=== PATIENT | male | born 1940 | race Caucasian/White ===

== ENCOUNTER 2017-10-29 21:53 | Inpatient (IN) | payer MEDICARE ==
[~2017-10-29] VITALS: Ht 190.5 cm; Wt 69.4 kg
[~2017-10-29 21:53] MED LIST: ALPRAZOLAM; ANALGESIC325 MG PO; ASPIRIN EC81 M1 PO; ASPIRIN325 PO; IBUPROFEN; IBUPROFEN 200200 M1 PO; MULTI VITAMIN1 EACH PO; MULTIVITAMINS1 EAC7 PO; NITROSTAT0.4 M1 SL; NORVASC; PLAVIX 75 MG TA75 M1 PO; PLAVIX 75 MG TA75 MG PO; PRAVACHOL 20 MG20 M1 PO; PRAVACHOL20 MG PO; PREDNISONE 1 MG1 M1 PO; PREDNISONE 2.52.5 M1 PO; PREDNISONE 5 MG5 MG PO; PROAIR HFA8.5 GM INH; SYMBICORT160 MCG/4. INH; TOPROL XL25 MG PO; VIT D PO; VITAMIN D32000 UNIT PO; XANAX 0.5 MG0.5 MG PO
[2017-10-29 22:03] VITALS: BP 88/54
[2017-10-29 22:31] LABS: ABSOLUTE BASOPHILS 0.1 thou/uL (0.0-0.2); ABSOLUTE EOSINOPHILS 0.1 thou/uL (0.0-0.7); ABSOLUTE LYMPHOCYTES 2.6 thou/uL (0.8-5.3); ABSOLUTE MONOCYTES 1.1 thou/uL (0.0-1.2); ABSOLUTE NEUTROPHILS 6.5 thou/uL (1.6-8.1); BASOPHILS 0.6 %; EOSINOPHILS 0.9 %; HEMATOCRIT 32.6 % (42.0-52.0); HEMOGLOBIN 10.9 gm/dL (14.0-18.0); LYMPHOCYTES 25.1 %; MCHC 33.5 g/dL (28.0-37.0); MCV 89.7 fL (80.0-100.0); MONOCYTES 10.6 %; MPV 9.9 fl. (7.2-11.1); NUCLEATED RBCS 0 /100WBC; PLATELET COUNT* 183 thou/uL (150-400); POLYS 62.8 %; RBC 3.63 mil/uL (4.50-6.00); WBC 10.4 thou/uL (4.0-11.0)
[2017-10-29 22:39] LABS: CALCIUM 8.1 mg/dL (8.5-10.1); CREATININE 1.1 mg/dL (0.6-1.3); POTASSIUM 3.8 mmol/L (3.5-5.1)
[2017-10-29 22:40] LABS: PROTIME 10.7 Seconds (9.20-11.50)
[2017-10-29 22:49] LABS: ALBUMIN 2.7 g/dL (3.4-5.0); TOTAL BILIRUBIN 0.3 mg/dL (<0.1-1.0); TOTAL PROTEIN 6.9 g/dL (6.4-8.2); TROPONIN-I LEVEL 0.11 ng/mL (<0.06)
[2017-10-30] VITALS (19 sets, daily range): BP systolic 85–120; BP diastolic 42–76
--- NOTE | 2017-10-30 01:00 | NUR ---
PATIENT ARRIVED TO UNIT @ 0040. VS WNL. TACHY ON MONITOR WITH OCCASIONAL PVS, PACS. PROTONIX GTT AND NS INFUSING. PT HAD BM ON HIS WAY TO ICU, MAROON IN COLOR, FOUL-SMELLING LIQUID STOOL. PT STATES HE IS FEELING BETTER THEN WHEN HE CAME IN. ALERT ORIENT X4. PT COMPLAINS OF ABD AND BACK PAIN. HE IS NAUSEOUS GAVE HIM ZOLFRAN WILL CONTINUE TO MONITOR. AND SISTER IN ROOM, UPDATED ON CURRENT CARE OF PLAN. WILL CONSULT GI, CONTINUE TO MONITOR LABS.
--- NOTE | 2017-10-30 02:30 | NUR ---
PT NAUSEA HAS NOT SUBSIDED PT HAD MODERATE SIZE EMESIS ABOUT 150ML. CONTENTS OF THE EMESIS WERE GELATINOUS LIKE CONSISTANCY, MAROON IN COLOR. PAGED HIM'S TO GET PHENERGAN IV. ALSO PAGED GI, WAITING CASTING DIRECTOR BACK. WAS NOTIFIED FROM LAB THAT PT HAS SHEARER ANTIGEN IN HIS BLOOD WILL PASS ON REPORT.
[2017-10-30 03:28] LABS: HEMATOCRIT 27.1 % (42.0-52.0)
--- NOTE | 2017-10-30 06:39 | NUR ---
PATIENT PROGRESSING TOWARDS GOALS. HAS NOT HAD AN EPISODE OF EMESIS SINCE O200. PT HEMODYNAMICALLY TABLE. TACHY ON MONITOR WITH OCCASIONAL PV'S. ORIENT X4. PT STATES HE FEELS WEAK AND TIRED. DID NOT SLEEP LAST NIGHT. PT HAS SCOPOLAMINE PATCH IN PLACE AND RECIEVED REGLAN IV. HAS BEEN NPO SINCE ADMISSION. SPOKE WITH GI DOCTOR PT WILL GET AN EGD THIS A.M BY DR. BURK. CONCENT SIGNED IN CHART. PT HAS NOT HAD BM SINCE THIS MORNING WHEN ADM TO ICU. CONTINUES PROTONIX GTT. LABS WNL RANGE HEMOGLOBIN WITHIN TRENDING DOWN. WILL CONTINUE TO MONITOR PT CLOSELY.
[2017-10-30 08:00] LABS: HEMATOCRIT 24.9 % (42.0-52.0); HEMOGLOBIN 8.3 gm/dL (14.0-18.0)
[2017-10-30 08:11] LABS: ALBUMIN 2.5 g/dL (3.4-5.0); CALCIUM 7.7 mg/dL (8.5-10.1); POTASSIUM 4.1 mmol/L (3.5-5.1); TOTAL BILIRUBIN 0.4 mg/dL (<0.1-1.0); TOTAL PROTEIN 6.2 g/dL (6.4-8.2)
[2017-10-30 10:10] LABS: HEMATOCRIT 25.2 % (42.0-52.0); HEMOGLOBIN 8.4 gm/dL (14.0-18.0)
--- NOTE | 2017-10-30 11:05 | NUR ---
Pt admitted with GI bleed yesterday, just returned from EGD. Spoke briefly with pt but he said he didn't feel like talking. Explained role of case mgt, will assess at later time.
--- NOTE | 2017-10-30 11:31 | NUR ---
Nutrition: Pt assessed for a low BMI, 16. Per [employer], height is 6'3" and wt is 128#. Pt admitted with GI bleed. H/o hiatal hernia, COPD, HTN. EGD showed esophageal ulcer. NSAIDS being held, repeating EGD in 2 weeks for possible biopsy. Diet advanced to clear liquid now. Labs: BG 117, alb 2.5, prealb 20.5, lactic acid trending back down 3.2. Underweight R/T etiology unknown AEB BMI 16. Continue advancing diet as tolerated. RD will order Ensure Clear for added nutrition at this time. Pt is not tolerating po very well yet. Follow up 10/31/17.
--- NOTE | 2017-10-30 15:44 | EKG ---
[place] [address] ELECTROCARDIOGRAM REPORT Name: [facility]LA [facility]SE Room: [address] ADM IN .R.#: [id number] Admission: 10/29/17 Attend Phys: Jayy Pina MD Discharge: Date of : 42 Report #: [id number] THIS REPORT FOR: //name// [facility] ED Test Date: 2017-10-29 Test Time: 22:35:32 Pat Name: CHELA HOUSE Department: Room: [facility] Gender: M Entertainment Production Professional: : 1940 Requested By: Bird Cruz Order Number: [id number] MD: Charles Du Measurements Intervals [place] Rate: 92 P: 51 AR: 148 QRS: 15 QRSD: 92 T: 176 QT: 348 QTc: 431 Interpretive Statements Sinus rhythm Atrial premature complexes Probable left atrial enlargement Possible anteroseptal infarct, old Nonspecific T abnormalities, lateral leads Compared to ECG 06/11/2007 16:17:02 Atrial premature complex(es) now present T-wave abnormality now present Prolonged QT interval no longer present Electronically Signed On 10-30-2017 15:44:15 CDT by Charles Du [email or web address] <ELECTRONICALLY SIGNED> By: Charles Du MD, FACC 10/30/17 1544 [id number] Charles Du MD, FACC /EPI
[2017-10-30 18:05] LABS: HEMATOCRIT 20.3 % (42.0-52.0)
--- NOTE | 2017-10-30 18:37 | NUR ---
PT ASSESSMENT CHARTED. VSS THROUGHOUT THE DAY. PT SAT UP AT THE SIDE OF THE BED SEVERAL TIMES TODAY RELATED TO BACK PAIN. PT REPORTS THAT HE DOES NOT HAVE MUCH OF AN APPETITE. CLEAR LIQUIDS TOLERATED WITH NO COMPLAINTS OF N/V. EGD DONE THIS MORNING.
--- NOTE | 2017-10-30 22:01 | NUR ---
PATIENT IS PROGRESSING TOWARDS GOALS. CURRENTLY RECEIVING BLOOD TRANSFUSION. TOLERATING WELL. VS WNL. LOW GRADE FEVER. HAS HAD IT SINCE BEGINING OF SHIFT, TRENDING DOWN. PT WILL BE GOING TO ROOM 219. GAVE REPORT TO RN. IN ROOM. PT COMPLAINING OF BACK PAIN BUT DENIES MEDICATION. PT HAS BEEN ANXIOUS SINCE ADMISSION HE STATES HE TAKES XANAX AT HOME. PT ON CLEAR LIQUIDS DR. WILLSONVED FOR IV ATIVAN BUT PT REFUSING.
[2017-10-31] VITALS (8 sets, daily range): BP systolic 80–114; BP diastolic 43–60
[2017-10-31 01:33] LABS: HEMATOCRIT 23.1 % (42.0-52.0); HEMOGLOBIN 7.9 gm/dL (14.0-18.0)
--- NOTE | 2017-10-31 03:24 | NUR ---
AGREE WITH PREVIOUS NURSE ASSESSMENT. PT ALERT ORIENTED FORGETFUL. TRANSFER FROM ICU TO 219 WITH BLOOD TRANSFUSING. POST H&H TRANSFUSION 7.9/23.[address] ON RA. RR TACHYPNEC 24-29. O2 SATS UPPPER 90S. PROTONIX QTT INFUSING AT 8MG/HR. VOIDS PER URINAL.
[2017-10-31 05:46] LABS: HEMOGLOBIN 8.1 gm/dL (14.0-18.0); MCH 29.9 pg (26.0-34.0); MCHC 33.7 g/dL (28.0-37.0); MCV 88.8 fL (80.0-100.0); MPV 9.4 fl. (7.2-11.1); RBC 2.71 mil/uL (4.50-6.00); RDW-CV 15.1 % (10.5-14.5); WBC 5.4 thou/uL (4.0-11.0)
[2017-10-31 05:49] LABS: CALCIUM 7.8 mg/dL (8.5-10.1); MAGNESIUM 1.7 mg/dL (1.8-2.4); POTASSIUM 3.8 mmol/L (3.5-5.1)
[2017-10-31 11:41] LABS: HEMATOCRIT 24.2 % (42.0-52.0); HEMOGLOBIN 8.3 gm/dL (14.0-18.0)
--- NOTE | 2017-10-31 13:14 | NUR ---
VSS, ASSUMED CARE IN THIS AM, ASSESSMENT PERFOMRED AND CHARTED, FALL PRECAUTIONS IN PLACE AND CALL LIGHT IN REACH. PT IS A&O4 BUT FORGETFUL, PT DENIES ANY PAIN, IS UP WITH 1 TO BSC.
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
[2017-10-31 20:35] LABS: BE -4.7 mmol/L (-2 to +3); HCO3 16.2 mmol/L (22.0-26.0); PCO2 21.9 mmHg (35.0-45.0); pH 7.488 (7.340-7.450)
[2017-11-01] VITALS (29 sets, daily range): BP systolic 72–113; BP diastolic 41–71
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
--- NOTE | 2017-11-01 01:36 | NUR ---
PT TRANSFERED TO ICU ROOM 5 AT 0115 FOR RESPIRATORY DISTRESS. PT PLACED ON BIPAP PER RT. PT ANXIOUS AND IMPULSIVE, SITTER AT BEDSIDE. RECIEVED ORDER FROM DR MORALES TO PLACE GUAJARDO CATHETER. 16 POLISH GUAJARDO PLACED WITH CLEAR YELLOW URINE.
--- NOTE | 2017-11-01 03:14 | NUR ---
PT'S RESPIRATIONS 45-50. PT'S HEART RATE DECREASED FROM 140'S TO 115. PT VERY TIRED. RT PAGED, ED PHYSICAN HERE ASSESING NEED FOR INTUBATION. DR MORALES AND PT'S DAUGHTER PAGED.
--- NOTE | 2017-11-01 04:26 | NUR ---
PT INTUBATED AT [address] NEVILLE. PT INTUBATED WITH 7.5 ET TUBE 23 CM AT LIP. PT GIVEN ETOMADATE AND SUCCYTLCHOLINE PRIOR TO INTUBATION. PT GIVEN 5 MG VERSED AND 50 MCG FENTANYL IV PUSH VERBAL ORDER DR LOO POST INTUBATION. NG PLACED VIA LEFT NARE TO LIS WHILE INTUBATED AND SEDATED ON VENTILATOR. SOFT BILATERAL WRIST RESTRAINTS IN PLACE TO MAINTAIN ET TUBE, NG AND GUAJARDO CATHETER. LEFT MESSAGE TO VOICE MAIL FOR PT'S DAUGHTER FREDERICK CAMPOS. AWAITING RETURN CALL.
--- NOTE | 2017-11-01 04:33 | NUR ---
STAT PORTABLE CHEST XRAY DONE TO CONFIRM ET TUBE AND NG TUBE PER ICU PROTOCOL.
[2017-11-01 04:58] LABS: MCH 30.4 pg (26.0-34.0); MCHC 32.5 g/dL (28.0-37.0); MCV 93.3 fL (80.0-100.0); MPV 10.4 fl. (7.2-11.1); RBC 3.53 mil/uL (4.50-6.00); RDW-CV 16.3 % (10.5-14.5); WBC 17.1 thou/uL (4.0-11.0)
[2017-11-01 05:33] LABS: BE -5.5 mmol/L (-2 to +3); HCO3 16.5 mmol/L (22.0-26.0); PCO2 22.5 mmHg (35.0-45.0); pH 7.483 (7.340-7.450)
[2017-11-01 05:36] LABS: PO2 165.8 mmHg (75.0-100.0)
[2017-11-01 05:39] LABS: CALCIUM 8.4 mg/dL (8.5-10.1); CREATININE 1.7 mg/dL (0.6-1.3); MAGNESIUM 2.4 mg/dL (1.8-2.4); POTASSIUM 4.4 mmol/L (3.5-5.1)
[2017-11-01 05:42] LABS: HEMOGLOBIN 10.7 gm/dL (14.0-18.0)
--- NOTE | 2017-11-01 06:45 | NUR ---
PT NOT PROGRESSING TOWARD GOALS. PT INTUBATED DURING SHIFT. PT RECCIEVING IV VERSED AND FENTANYL FOR SEDATION.
[2017-11-01 13:24] LABS: HEMATOCRIT 27.4 % (42.0-52.0); HEMOGLOBIN 9.2 gm/dL (14.0-18.0); MCH 29.8 pg (26.0-34.0); MCHC 33.6 g/dL (28.0-37.0); MCV 88.8 fL (80.0-100.0); NUCLEATED RBCS 0 /100WBC; PLATELET COUNT* 128 thou/uL (150-400); RBC 3.09 mil/uL (4.50-6.00); RDW-CV 15.4 % (10.5-14.5); WBC 7.9 thou/uL (4.0-11.0)
[2017-11-01 13:33] LABS: ALBUMIN 2.4 g/dL (3.4-5.0); CALCIUM 7.9 mg/dL (8.5-10.1); POTASSIUM 4.2 mmol/L (3.5-5.1); TOTAL BILIRUBIN 0.6 mg/dL (<0.1-1.0); TOTAL PROTEIN 6.6 g/dL (6.4-8.2)
[2017-11-01 13:50] LABS: ABSOLUTE LYMPHOCYTES 0.5 thou/uL (0.8-5.3); ABSOLUTE MONOCYTES 0.2 thou/uL (0.0-1.2); ABSOLUTE NEUTROPHILS 7.3 thou/uL (1.6-8.1); PLATELET ESTIMATE DECREASED
[2017-11-01 13:51] LABS: POLYCHROMASIA Occasional
--- NOTE | 2017-11-01 21:17 | NUR ---
INITAL ASSESMENT COMPLETED AT 1930. PT INTUBATED AND SEDATED ON VENTILATOR. PT OPENS EYES TO VOICE AND FOLLOWS COMMANDS. PT'S MAP < 60. CALLED DR FONSECA AND RECIEVED ORDER TO INFUSE 750 ML NORMAL SALINE X1 AND CHECK CBC.
[2017-11-01 21:33] LABS: HEMATOCRIT 26.8 % (42.0-52.0); HEMOGLOBIN 9.1 gm/dL (14.0-18.0); MCH 30.1 pg (26.0-34.0); MCHC 33.9 g/dL (28.0-37.0); MCV 88.7 fL (80.0-100.0); MPV 9.4 fl. (7.2-11.1); RBC 3.02 mil/uL (4.50-6.00); RDW-CV 15.5 % (10.5-14.5); WBC 8.6 thou/uL (4.0-11.0)
--- NOTE | 2017-11-01 22:29 | NUR ---
PT'S DAUGHTER HUAN ARRIVED. DAUGHTER STATES SHE IS DPOA FOR PT. DAUGHTER STATES HER DPOA PAPERWORK IS ON FILE AT [facility]. DAUGHTER STATES PT'S EX AND FAMILY ARE NOT TO HAVE INFORMATION. SECURITY AND BUILDING PRINCIPAL MADE AWARE THAT PT IS NO INFORMATION STATUS.
[2017-11-02] VITALS (21 sets, daily range): BP systolic 85–100; BP diastolic 51–65
[2017-11-02 04:30] LABS: ABSOLUTE LYMPHOCYTES 0.4 thou/uL (0.8-5.3); ABSOLUTE MONOCYTES 0.3 thou/uL (0.0-1.2); ABSOLUTE NEUTROPHILS 7.8 thou/uL (1.6-8.1); BASOPHILS 0.2 %; HEMATOCRIT 26.5 % (42.0-52.0); HEMOGLOBIN 8.9 gm/dL (14.0-18.0); LYMPHOCYTES 4.1 %; MCH 30.2 pg (26.0-34.0); MCHC 33.5 g/dL (28.0-37.0); MCV 90.1 fL (80.0-100.0); MONOCYTES 3.9 %; MPV 10.8 fl. (7.2-11.1); NUCLEATED RBCS 0 /100WBC; PLATELET COUNT* 115 thou/uL (150-400); POLYS 91.8 %; RBC 2.94 mil/uL (4.50-6.00); RDW-CV 15.3 % (10.5-14.5); WBC 8.5 thou/uL (4.0-11.0)
[2017-11-02 04:42] LABS: ALBUMIN 2.3 g/dL (3.4-5.0); CALCIUM 7.6 mg/dL (8.5-10.1); CREATININE 1.7 mg/dL (0.6-1.3); POTASSIUM 3.9 mmol/L (3.5-5.1); TOTAL BILIRUBIN 0.5 mg/dL (<0.1-1.0); TOTAL PROTEIN 6.4 g/dL (6.4-8.2)
[2017-11-02 07:51] LABS: BE -3.1 mmol/L (-2 to +3); HCO3 19.5 mmol/L (22.0-26.0); PCO2 26.3 mmHg (35.0-45.0); PO2 112.2 mmHg (75.0-100.0); pH 7.487 (7.340-7.450)
--- NOTE | 2017-11-02 09:00 | NUR ---
RN RESUMED CARE OF PT THIS AM. PT VENTILATED AND SEDATION ON PROPOFOL. AROUSABLE TO LIGHT TOUCH/VOICE, NODES HEAD YES AND NO APPROPRIATELY. OBEYS COMMANDS. PT TRYING TO TALK. VSS. AFEBRILE. PT DENIES PAIN. DAUGHTER CALLED THIS AM AND STATES THAT SHE AND HER SISTER WILL BE IN SHORTLY. STATES PTS AD PAPERWORK IS ON FILE AT [facility], REQUEST FOR PAPERWORK FAXED THIS AM.
--- NOTE | 2017-11-02 10:23 | CON ---
[address] [address] CONSULTATION Name: CHELA [facility]SE Room: [address] IN .R.#: [id number] Admission: 10/29/17 Attend Phys: Jayy Pina MD Discharge: Date of : 42 Report #: [id number] THIS REPORT FOR: //name// CC: Jayy Pina Surehs Box DATE OF SERVICE: 11/01/2017 REFERRING PHYSICIAN: Jayy Pina MD CHIEF COMPLAINT: Respiratory failure. HISTORY OF PRESENT ILLNESS: The patient presented to the Emergency Room because he had been vomiting blood. He also had clots in his stool. He has rheumatoid arthritis, had been on steroids, nonsteroidal anti-inflammatory drugs and Plavix as well. According to the records, he did complain of abdominal pain. During the course of the verifier operator apparently the patient was intubated for respiratory distress. He had tachypnea with a respiratory rate in the 40s and 50s. Notes reviewed revealed that the exiting nurse this morning shows that the patient had respiratory distress. Saturations were in the 80% range. He was placed on a nonrebreather mask. The patient was found to be hypoxic, apparently was transferred to the intensive care unit and somewhere in this time frame required intubation for he did not respond favorably to BiPAP. During the course of this hospitalization, the patient underwent GI evaluation for his GI bleed. An upper endoscopy procedure was performed on 10/30 revealed an esophageal ulcer that was bleeding. This was injected with 5 mL of 1:10,000 solution of epinephrine for hemostasis. PAST MEDICAL HISTORY: Significant for anxiety, COPD and coronary artery disease. He has had stents placed, hiatal hernia, hypertension, cardiomyopathy, arthritis and chronic congestive heart failure. SOCIAL HISTORY: He is a smoker, 1-2 packs per day. MEDICATIONS: Prior to admission include Plavix, Xanax, Advil, prednisone and metoprolol. ALLERGIES: PENICILLIN AND LACTULOSE. REVIEW OF SYSTEMS: System review negative other than what is outlined above. FAMILY HISTORY: Noncontributory [place] [address] CONSULTATION Name: CHELA HOUSE Room: [address]#: [id number] Admission: 10/29/17 Attend Phys: Jayy Pina MD Discharge: Date of : 42 Report #: [id number] PHYSICAL EXAMINATION: VITAL SIGNS: Blood pressure 97/61, respiratory rate 26, pulse rate 111, temperature 97.6 degrees and weight 128 pounds. GENERAL APPEARANCE: Intubated, sedated on propofol drip. Oral endotracheal tube. Orogastric tube as well. HEAD: Atraumatic. EYES: Pupils are round, equal and reactive. NECK: With minimal JVD. No mass effect. LYMPHATICS: Negative. CHEST: Reveals diminished breath sounds. No wheezes or rhonchi. He has a barrel chest. CARDIOVASCULAR: Regular rhythm. No murmurs or rubs. Distant heart tones. ABDOMEN: Soft. No organomegaly or tenderness or mass effect. EXTREMITIES: No evidence of edema or clubbing. SKIN: Warm and dry, no rash or cyanosis. LYMPHATICS: Negative. Pulses equal bilaterally. NEUROLOGIC: The patient is sedated. LABORATORY DATA: Most recent arterial blood gas at 5:30 a.m. revealed a pH 7.48, pCO2 of 23, pO2 166 and bicarbonate is 16. He is on 50% now as far as his FiO2 is concerned. Hemoglobin and hematocrit this morning revealed a white count of 17,000, hemoglobin was 10.7 and hematocrit 33. Electrolytes: Sodium 149, potassium 4.4, chloride 110, CO2 of 17, BUN of 56, creatinine 1.7 and EGFR 39. Chest x-ray reveals bilateral pulmonary infiltrates. ET tube is in adequate position. IMPRESSION: 1. Acute respiratory insufficiency/failure requiring intubation. 2. Gastrointestinal bleed. 3. Esophageal ulceration. 4. Tobacco abuse. 5. Rheumatoid arthritis. RECOMMENDATION: Obviously, anticoagulation needs to be discontinued. Pulmonary stone, continue with aerosol treatments and adjust ventilator accordingly. Followup x-ray, ABGs in the a.m. I do not see a need for trials in the next 24 hours, maybe on Friday of this week can initiate trials. Otherwise, no change in his medication. <ELECTRONICALLY SIGNED> By: Riley Kim MD 11/02/17 1023 1208 [id number] Kim MD /nt
--- NOTE | 2017-11-02 16:41 | NUR ---
PT SLOWLY PROGRESSING TOWARDS GOALS. REMAINS VENTILATED AND SEDATED ON PROPOFOL. AROUSABLE TO LIGHT TOUGH/VOICE, OBEYS COMMANDS, AND NODES HEAD YES AND NO APPROPRIATELY. PT C/O PAIN AT TIMES, CONTROLLED WITH PRN FENTANYL. BECOMES AGITATED WHEN STIMULATED BY FAMILY, REQUIRING MORE SEDATION. VSS. BP SLIGHTLY LOW. AFEBRILE. FAMILY DISCUSSED PT CONDITION WITH MD. DENIES FURTHER QUESTIONS/CONCERNS.
[2017-11-03] VITALS (29 sets, daily range): BP systolic 85–113; BP diastolic 54–72
[2017-11-03 04:00] LABS: ABSOLUTE LYMPHOCYTES 0.2 thou/uL (0.8-5.3); ABSOLUTE MONOCYTES 0.4 thou/uL (0.0-1.2); ABSOLUTE NEUTROPHILS 7.7 thou/uL (1.6-8.1); BASOPHILS 0.2 %; HEMATOCRIT 26.2 % (42.0-52.0); HEMOGLOBIN 8.6 gm/dL (14.0-18.0); LYMPHOCYTES 2.9 %; MCH 29.9 pg (26.0-34.0); MCHC 32.9 g/dL (28.0-37.0); MCV 90.8 fL (80.0-100.0); MONOCYTES 4.4 %; MPV 9.9 fl. (7.2-11.1); NUCLEATED RBCS 1 /100WBC; PLATELET COUNT* 114 thou/uL (150-400); POLYS 92.5 %; RBC 2.88 mil/uL (4.50-6.00); RDW-CV 15.5 % (10.5-14.5); WBC 8.4 thou/uL (4.0-11.0)
--- NOTE | 2017-11-03 06:14 | NUR ---
PT AAOX1. PT REMAINS ON VENTILATOR ETT 7.5 23@LIP INTACT. VENT SETTINGS AC14, TV 500, FIO2 35% AND PEEP 5. AUTOMATION CONTROLS SPECIALIST INTACT WITH ALARMS SET.GUAJARDO INTACT AND PATNET DRAINING YELLOW URINE OT BEDSIDE BAG. PT WILL FOLLOW SIMPLE COMMANDS, DENIES PAIN. PT HAD UNEVENTFUL NIGHT. VSS AND NO ACUTE CHANGES DURIGN SHIFT. DAUGHTER CALLED AND STATED SHE WAS HOPING WE WOULD GET THE ADVANCE DIRECTIVE PAPERWORK FROM [facility], SHE THINKS HE IS SUPPOSE TO BE A DNR. RESTRAITNS REMAIN INTACT, SEE RESTRAINT CHARTING. WILL CONTINUE TO MONITOR
--- NOTE | 2017-11-03 10:00 | NUR ---
PT AWAKE ON VENTILATOR. FENTANYL PUSH GIVEN WITH NO CHANGE IN SEDATION. PULMONARY NOTIFIED AND RECEIVED ORDERS TO DC PROPOFOL, START VERSED. IF VERSED NOT ENOUGH START FENTANYL.
[2017-11-03 10:43] LABS: BE -3.4 mmol/L (-2 to +3); PCO2 30.2 mmHg (35.0-45.0); PO2 82.4 mmHg (75.0-100.0); pH 7.439 (7.340-7.450)
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
--- NOTE | 2017-11-03 12:31 | NUR ---
PT EXTUBATED 1115. PT TALKATIVE. ASKING FOR WATER. DENIES PAIN. DTR AT BEDSIDE.
--- NOTE | 2017-11-03 15:11 | NUR ---
PT PASSED BEDSIDE SWALLOW ON THIN LIQUIDS AND TOLERATING.
--- NOTE | 2017-11-03 15:42 | NUR ---
PT HEART RATE WENT TO 130'S. PAGED ASKED FOR IV METOPROLOL PT STILL NPO AFTER EXTUBATION. NO ORDERS RECEIVED. PT HR CURRENTLY <110. WILL CONTINUE TO MONITOR.
--- NOTE | 2017-11-03 16:22 | NUR ---
WOUND CARD CONSULT CALLED FOR FEET. FEET CLEANED WITH SOAP AND WATER.
--- NOTE | 2017-11-03 17:58 | 2DMMODE ---
[place] [address] 2 D/M-MODE ECHOCARDIOGRAM Name: CHELA [facility]SE Room: [address] IN [facility]#: [id number] Admission: 10/29/17 Attend Phys: Jayy Pina, Discharge: Date of : 42 Date of Service: 11/03/17 1758 Report #: [id number] THIS REPORT FOR: //name// APPROVED REPORT Study performed: 11/03/2017 16:23:04 EXAM: Comprehensive 2D, Doppler, and color-flow Echocardiogram Patient Location: In-Patient Room #: [facility] Status: routine BSA: 1.77 HR: 107 bpm BP: 101/68 mmHg Rhythm: Atrial Fibrillation Other Information Study Quality: Good Indications Atrial Fibrillation Resp failure 2D Dimensions IVSd: 8.91 (7-11mm) LVOT Diam: 19.85 (18-24mm) LVDd: 50.21 mm PWd: 8.86 (7-11mm) Ascending Ao: 31.16 (22-36mm) LVDs: 42.31 (25-40mm) Aortic Root: 32.69 mm Volumes Left Atrial Volume (Systole) LA ESV Index: 47.20 mL/m2 Aortic Valve AoV Peak Vijay.: 1.15 m/s AO Peak Gr.: 5.28 mmHg LVOT Max P.93 mmHg AO Mean Gr.: 2.88 mmHg LVOT Mean P.36 mmHg LVOT Max V: 0.86 m/s AO V2 VTI: 17.51 cm LVOT Mean V: 0.54 m/s EVETTE (VTI): 2.24 cm2 LVOT V1 VTI: 12.67 cm Mitral Valve E/A Ratio: 1.15 MV Decel. Time: 119.69 [place] [address] 2 D/M-MODE ECHOCARDIOGRAM Name: CHELA HOUSE Room: [address] IN .R.#: [id number] Admission: 10/29/17 Attend Phys: Jayy Pina, Discharge: Date of : 42 Date of Service: 11/03/17 1758 Report #: [id number] MV E Max Vijay.: 1.12 m/s MV PHT: 34.71 ms MVA (PHT): 6.34 cm2 TDI E/Lateral E': 8.62 E/Medial E': 12.44 Medial E' Vijay.: 0.09 m/s Lateral E' Vijay.: 0.13 m/s Pulmonary Valve PV Peak Vijay.: 0.78 m/s PV Peak Gr.: 2.45 mmHg Tricuspid Valve RAP Estimate: 5.00 mmHg TR Peak Gr.: 37.55 mmHg RVSP: 42.55 mmHg PA Pressure: 42.55 mmHg Left Ventricle The left ventricle is normal size. There is global hypokinesis of the left ventricle. There is normal left ventricular wall thickness. Left ventricular systolic function is severely decreased. LVEF is 20%. The left ventricular diastolic function is normal. Right Ventricle The right ventricle is normal size. The right ventricular systolic function is normal. Atria Left atrium is moderate to severely dilated. The right atrium size is normal. Aortic Valve The aortic valve is normal in structure. Trace aortic regurgitation. There is no aortic valvular stenosis. Mitral Valve The mitral valve is normal in structure. Moderate mitral regurgitation. No evidence of mitral valve stenosis. Tricuspid Valve The tricuspid valve is normal in structure. Trace tricuspid regurgitation. estimated pa pressure 45 mm Hg Pulmonic Valve Pulmonic valve is not well visualized. Mild [place] [address] 2 D/M-MODE ECHOCARDIOGRAM Name: CHELA HOUSE Room: [address] IN [facility]#: [id number] Admission: 10/29/17 Attend Phys: Jayy Pina, Discharge: Date of : 42 Date of Service: 11/03/17 1758 Report #: [id number] Great Vessels The aortic root is normal in size. IVC is normal in size and collapses with >50% inspiration Pericardium There is no pericardial effusion. <Conclusion> LVEF is 20%. Left atrium is moderate to severely dilated. Moderate mitral regurgitation. Trace tricuspid regurgitation. estimated pa pressure 45 mm Hg <ELECTRONICALLY SIGNED> By: Nikita Ordonez MD, [facility] 11/03/171757 57 57 Nikita Ordonez MD, FACC /INF
--- NOTE | 2017-11-03 18:20 | NUR ---
PT TOLERATING MECH CHOPPED DIET AND THIN LIQUIDS.
[2017-11-04] VITALS (31 sets, daily range): BP systolic 80–117; BP diastolic 45–67
--- NOTE | 2017-11-04 05:19 | NUR ---
PT. PROGRESSING TOWARDS GOALS. BLOOD PRESSURES SOFT BUT STABLE THROUGHOUT SHIFT. NO EPISODES OF NAUSEA/VOMITING. SINUS ARRYTHMIA WITH PAC'S AND PVC'S ON MONITOR. PT. REFUSED BATH THIS SHIFT, STATED HE WAS TOO COLD AND WANTS ONE LATER IN THE MORNING. REMAINS ON 2L O2. WILL CONTINUE TO MONITOR.
--- NOTE | 2017-11-04 12:47 | NUR ---
PT COMPLAINING OF NOT FEELING WELL. PT HAS BEEN HAVING TROUBLE SWALLOWING, CAUSING HIM TO COUGH. PT IS CURRENTLY IN AFIB. LEFT A MESSAGE FOR A CALL BACK FROM THE
--- NOTE | 2017-11-04 13:07 | NUR ---
WOUND CARE NOTE: CONSULT RECEIVED FOR BILATERAL FEET. PATIENT PRESENTS WITH THICKENED, DRY SKIN TO BILATERAL FEET. THE RIGHT BEING WORSE THAN THE LEFT. PATIENT STATES HE HAS HAD THIS BEFORE AND GOTTEN LOTION AT THE STORE THAT HELPED. PATIENT ALSO HAS THICKENED, YELLOW TOENAILS TO BILATERAL FEET, AGAIN, RIGHT BEING WORSE THAN THE LEFT. TOENAILS ARE QUITE LONG AND POTENTIALLY DIGGING INTO OTHER TOES. IT IS DIFFICULT TO TELL IF ANY WOUNDS ARE PRESENT DUE TO THE THICKENED SKIN. SWEET, FOUL ODOR NOTED. PATIENT HAS MULTIPLE TOE DEFORMITIES TOO. CLEANSED BILATERAL FEET AND LOWER LEGS WITH SOAP AND WATER. WAS ABLE TO REMOVE A GOOD PORTION OF THE DRIED, THICKENED SKIN. APPLIED LOTION TO AREAS THAT I WAS UNABLE TO REMOVE IN HOPES THAT IT WILL SOFTEN AND COME OFF. RECOMMEND PODIATRY CONSULT-IN PLACE FOLLOW UP WITH PODIATRY ON REGULAR BASIS CLEANSED BILATRERAL FEET WELL WITH SOAP AND WATER, APPLY LOTION TOENAILS NEED TRIMMED
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
--- NOTE | 2017-11-04 16:29 | NUR ---
ASSUMED CARE OF PATIENT FROM [facility]. PLAN IS TO MOVE TO TELEMETRY. CARDIZEM GTT AT 3 MG/HOUR ORDERED BY DR BARAKAT. IRREGULAR TACHYARRYTHMIA BUT WITH P WAVES.
--- NOTE | 2017-11-04 17:15 | EKG ---
[place] [address] ELECTROCARDIOGRAM REPORT Name: CHELA [facility]SE Room: [address] ADM IN M.R.#: [id number] Admission: 10/29/17 Attend Phys: Jayy Pina MD Discharge: Date of : 42 Report #: [id number] THIS REPORT FOR: //name// [facility] Test Date: 2017-11-04 Test Time: 13:15:16 Pat Name: CHELA HOUSE Department: Room: [address] Gender: M Litigation Claim Representative: : 1940 Requested By: Aime Amador Order Number: [id number] Reading MD: Denzel Cox Measurements Intervals [place] Rate: 129 P: 19 MO: 129 QRS: 13 QRSD: 86 T: 190 QT: 311 QTc: 456 Interpretive Statements Sinus tachycardia Multiform ventricular premature complexes Low voltage, extremity leads Probable LVH with secondary repol abnrm Compared to ECG 10/29/2017 22:35:32 Ventricular premature complex(es) now present Low QRS voltage now present Sinus rhythm no longer present Atrial premature complex(es) no longer present Myocardial infarct finding no longer present T-wave abnormality no longer present Electronically Signed On 11-04-2017 17:14:52 CDT by Denzel Cox [email or web address] <ELECTRONICALLY SIGNED> By: Denzel Cox MD, [facility] 11/04/17 1714 1315 1315 Denzel Cox MD, [facility] /EPI
[2017-11-05] VITALS: BP 88/47
[2017-11-05 01:00] VITALS: BP 106/55
[2017-11-05 04:00] VITALS: BP 102/61
[2017-11-05 08:41] LABS: ALBUMIN 2.5 g/dL (3.4-5.0); CREATININE 1.1 mg/dL (0.6-1.3); POTASSIUM 3.9 mmol/L (3.5-5.1); TOTAL BILIRUBIN 0.6 mg/dL (<0.1-1.0); TOTAL PROTEIN 6.3 g/dL (6.4-8.2)
[2017-11-05 09:05] LABS: HEMATOCRIT 28.8 % (42.0-52.0); HEMOGLOBIN 9.5 gm/dL (14.0-18.0); MCHC 33.1 g/dL (28.0-37.0); MCV 90.7 fL (80.0-100.0); MPV 10.7 fl. (7.2-11.1); NUCLEATED RBCS 1 /100WBC; PLATELET COUNT* 101 thou/uL (150-400); RBC 3.17 mil/uL (4.50-6.00); RDW-CV 14.9 % (10.5-14.5); WBC 8.1 thou/uL (4.0-11.0)
--- NOTE | 2017-11-05 09:47 | NUR ---
ASSUMED CARE OF PT AT 0715. PT REMAINS A&O X4, VSS ON 4L O2 VIA NC, PT STATES THAT HE DOES NOT EAT BREAKFAST BUT DID DRINK HIS ENCSURE. PT WORKED WITH OT THIS AM TO SIT AT THE EDGE OF THE BED WHICH HE REPORTS CAUSED HIM TO BE DIZZY. PT ALSO C/O RIGHT ELBOW PAIN, P O PAIN MEDS INEFFECTIVE AND IV PAIN MEDS ADMINISTERED PER MAR EFFECTIVELY REDUCED PT PAIN TO A TOLERABLE LEVEL. NURSING WILL CONTINUE TO MONITOR.
[2017-11-05 09:56] LABS: ABSOLUTE LYMPHOCYTES 0.2 thou/uL (0.8-5.3); ABSOLUTE NEUTROPHILS 7.9 thou/uL (1.6-8.1)
[2017-11-05 09:57] LABS: PLATELET ESTIMATE DECREASED
[2017-11-05 09:58] LABS: HYPOCHROMASIA 2+; MACROCYTES 1+; POLYCHROMASIA 1+
[2017-11-05 10:00] LABS: LARGE PLATELETS OCCASIONAL
[2017-11-05 12:17] VITALS: BP 106/59
[2017-11-05 16:00] VITALS: BP 88/54
--- NOTE | 2017-11-05 18:38 | NUR ---
PT CONTINUES TO BE A&O, CALM AND COOPERATIVE. HE HAS BEEN EATING BETTER TODAY ACCORDING TO HIS REPORTS AND ATE GREATER THAN 75% OF HIS DINNER. PT UP TO BEDSIDE TO DANGLE FEET X3 TODAY. HE HAS HAD C/O INCREASED GENERALIZED AND RIGHT ELBOW PAIN. SWELLING NOTED TO RUE, PT DENIES AND LOSE OF ROM AND REPORTS THAT HIS ELBOW IS DISLOCATED. PT ELBOW IS VISABLY DEFORMED. PT REFUSED SEVERAL TURNS TODAY. THIS NURSE EDUCATED PT ON THE IMPORTANCE OF OFF LOADING AND REPOSITIONING TO PREVENT PRESSURE ULCERS. PT CURRENTLY RESTING IN BED WATCHING TV. HOURLY ROUNDING COMPLETED FOR COMFORT AND SAFTEY. NURSING WILL CONTINUE TO MONITTOR.
[2017-11-05 20:00] VITALS: BP 99/58
[2017-11-06] VITALS: BP 115/58
[2017-11-06 04:00] VITALS: BP 107/54
--- NOTE | 2017-11-06 05:30 | NUR ---
ASSUMED CARE OF PT AFTER REPORT AT 1930, PT A&OX4, FORGETFUL, ANXIOUS AND CONFUSED AT TIMES. VSS. PHYSICAL ASSESSMENT COMPLETED AND CHARTED. PT ON O2 AT 4L WITH O2 SAT 93% O2 SAT. PT TRACING SA WITH EPISODE OF VTACH ON TELE.PT REMAINS ON BED ALL NIGHT. PT WITH GUAJARDO TO DEPENDENT DRAIN. PT O2 SAT 88-89% INCREASED O2 TO 5L NC-O2 SAT 92%. PT REQUESTED FOR XANAX-GIVEN PER APR.HOURLY ROUNDING OBSERVED. CALL LIGHT WITHIN REACH.
--- NOTE | 2017-11-06 07:12 | NUR ---
I have reviewed the documentation by YUSEF THAYER from to 11/05/17 and I concur with it. MOISES FLORES
[2017-11-06 08:45] LABS: BE -2.9 mmol/L (-2 to +3); HCO3 18.7 mmol/L (22.0-26.0); PCO2 23.9 mmHg (35.0-45.0); PO2 64.9 mmHg (75.0-100.0); pH 7.512 (7.340-7.450)
--- NOTE | 2017-11-06 10:25 | NUR ---
Rehab consult placed.
[2017-11-06 12:08] VITALS: BP 100/62
[2017-11-06 16:00] VITALS: BP 103/67
--- NOTE | 2017-11-06 19:28 | NUR ---
ASSUMED CARE OF PT AT 0710 AFTER RECIEVING BEDSIDE REPORT. PT HAS BEEN CONFUSED TODAY AND BEING VERY REPEDATIVE. PT AGGITATED AND WANTING TO GO HOME. THIS NURSE AND DAUGHTER CELESTINE EXPLAINED TO PT THAT HE SHOULD STAY AND HE DID AGREE. PT C/O PAIN HAVE BEEN CONTROLLED PER APR. PT WAS UP TO THE RECLINER TWO TIMES TODAY. HOURLY ROUNDING COMPLETED FOR COMFORT AND SFATEY. NURSING WILL CONTINUE TO MONITOR.
[2017-11-06 20:00] VITALS: BP 104/64
[2017-11-07] VITALS (9 sets, daily range): BP systolic 87–126; BP diastolic 47–56
--- NOTE | 2017-11-07 05:04 | NUR ---
ASSUMED CARE OF PT AFTER REPORT AT 1930. PT A&O4, FORGETFUL AND CONFUSED AT TIMES. VSS. PHYSICAL ASSESSMENT COMPLETED AND CHARTED. PT ON O2 AT 5L WITH 95% O2 SAT. PT TRACING SA/SR PVC ON TELE. PT UP 2-3 MAX ASSIST. PT WITH GUAJARDO TO DEPENDENT DRAIN. PT C/O OF RIGHT ELBOW PAIN-PAIN MEDS GIVEN PER MAR WITH PARTIAL RELIEF. PT RESTED WELL ON RECLINER AND BED LATER ON. HOURLY ROUNDING OBSERVED. CALL LIGHT WITHIN REACH. BED IN LOW POSITION. BED ALARM ON.
--- NOTE | 2017-11-07 08:49 | NUR ---
RECEIVED CONSULT FOR POSSIBLE REHAB ADMISSION. CONSULT HAS BEEN ACKNOWLEDGED BY CHILD PROTECTION SPECIALIST AND DR. BELTRÁN. PATIENT ADMITTED WITH GI BLEED, CHF, RESP FAILURE SPENT TIME IN ICU. NOW ON TELE. PATIENT RELUCTANTLY PARTICIPATED IN THERAPY EVALUATIONS, YESTERDAY REFUSED PT MULTIPLE TIMES, INCREASED CONFUSION YESTERDAY. SPOKE WITH THERAPIES DO NOT FEEL PATIENT WOULD BE ABLE TO OR WILLING TO PARTICIPATE IN THERAPIES AT THIS TIME. SPOKE WITH CMFERNY AND INFORMED HER, WILL FOLLOW ALONG WITH PATIENT TO SEE IF PARTICIPATION AND ABILITY IMPROVES ONCE MEDICALLY STABLE AND CONFUSION CLEARS. THANK YOU FOR THIS CONSULT.
--- NOTE | 2017-11-07 12:20 | NUR ---
1015 BLOOD PRESSURE IMPROVING
--- NOTE | 2017-11-07 12:20 | NUR ---
0485 ASSUMED CARE OF PATIENT. SEE DOCUMENTED ASSESSMENT. POOR CAPAILLARY REFILL.
--- NOTE | 2017-11-07 14:04 | NUR ---
1300 TRANSFERRED TO BS FOR BM.
--- NOTE | 2017-11-07 14:04 | NUR ---
1200 UP TO CHAIR FOR MEAL.
--- NOTE | 2017-11-07 17:55 | NUR ---
PATIENT PROGRESSING TOWARDS GOALS. APPETITE IMPROVING. BLOOD PRESSURE LOWER THIS MORNING AND HELD BETA KARLA. ABLE TO GIVE DILTIAZEM REST OF SHIFT. UP TO CHAIR AND BSC. ORIENTED TO PERSON,PLACE, AND SITUATIION. DAUGHTER HAS VISITED
[2017-11-08 04:00] VITALS: BP 98/54
--- NOTE | 2017-11-08 04:59 | NUR ---
ASSUMED CARE OF PT AFTER REPORT AT 1930. PT A&OX4 AND FORGETFUL. VSS. PHYSICAL ASSESMENT COMPLETED AND CHARTED. PT ON NC AT 5L WITH 92% O2 SAT. PT TRACING SA WITH OCC PVCS ON TELE. PT REPORTED TO BE 2 MAX ASSIST TO RECLINER BUT REMAINS ON BED ALL NIGHT. PT WITH GUAJARDO TO DEPENDENT DRAIN. PT REQUESTED FOR XANAX-GIVEN PER APR. DENNIES ANY PAIN OR DISCOMFORT. HOURLY ROUNDING OBSERVED. HS REST & SAFETY GOALS ACHIEVED. CALL LIGHT WITHIN REACH. BED IN LOW POSITION. BED ALARM ON.
[2017-11-08 05:33] LABS: HEMATOCRIT 26.1 % (42.0-52.0); HEMOGLOBIN 8.7 gm/dL (14.0-18.0); MCH 29.9 pg (26.0-34.0); MCHC 33.5 g/dL (28.0-37.0); MCV 89.4 fL (80.0-100.0); MPV 9.9 fl. (7.2-11.1); RBC 2.92 mil/uL (4.50-6.00); RDW-CV 15.3 % (10.5-14.5); WBC 7.1 thou/uL (4.0-11.0)
[2017-11-08 06:08] LABS: ALBUMIN 2.1 g/dL (3.4-5.0); CALCIUM 7.7 mg/dL (8.5-10.1); MAGNESIUM 2.2 mg/dL (1.8-2.4); POTASSIUM 3.3 mmol/L (3.5-5.1); TOTAL BILIRUBIN 0.6 mg/dL (<0.1-1.0); TOTAL PROTEIN 5.2 g/dL (6.4-8.2)
[2017-11-08 07:30] VITALS: BP 102/57
[2017-11-08 11:38] VITALS: BP 92/59
--- NOTE | 2017-11-08 14:21 | NUR ---
RECEIVED PT CARE 0700. HE IS AWAKE/ALERT AND ORIENTED X3. VERY FORGETFUL AND CONFUSED TODAY. VSS. BOX SPINNER TRACING SR. O2 SAT 92% ON 5L NC. UP WITH ASSIST X2 WITH GAIT BELT, AND WALKER. UP IN THE CHAIR MOST OF THE MORNING. AM ASSESSMENT CHARTED. MEDS PER MAR. BACK IN THE BED THIS AFTERNOON TO TAKE A NAP. BED ALARM ON. CALL LIGHT WITHIN REACH. WILL CONTINUE TO MONITOR.
[2017-11-08 15:18] VITALS: BP 86/52
[2017-11-08 15:19] VITALS: BP 87/54
[2017-11-08 20:00] VITALS: BP 126/56; BP 92/42
[2017-11-09] VITALS (7 sets, daily range): BP systolic 74–106; BP diastolic 40–59
[2017-11-09 04:42] LABS: HEMATOCRIT 27.9 % (42.0-52.0); HEMOGLOBIN 9.2 gm/dL (14.0-18.0); MCH 29.2 pg (26.0-34.0); MCV 88.6 fL (80.0-100.0); MPV 10.1 fl. (7.2-11.1); RBC 3.15 mil/uL (4.50-6.00); RDW-CV 15.3 % (10.5-14.5); WBC 5.6 thou/uL (4.0-11.0)
[2017-11-09 04:58] LABS: CALCIUM 7.7 mg/dL (8.5-10.1); CREATININE 0.9 mg/dL (0.6-1.3); MAGNESIUM 2.2 mg/dL (1.8-2.4); POTASSIUM 4.1 mmol/L (3.5-5.1)
--- NOTE | 2017-11-09 05:01 | NUR ---
ASSUMED CARE OF PT AFTER REPORT AT 1930. PT A&O3. NOT ORIENTED TO TIME. PT IS ALSO FORGETFUL AND CONFUSED AT TIMES. PT ON O2 SAT 5L WITH 92% O2 SAT. PT TRACING SR ON TELE. PT RESTED WELL ON BED. PT COMPLAINED OF BACK & LEG ARM PAIN WITH PAIN SCALE OF 7/10-PAIN MEDS GIVEN PER APR. PT WITH GUAJARDO TO DEPENDENT DRAIN. HOURLY ROUNDING OBSERVED. CALL LIGHT WITHIN REACH. BED IN LOW POSITION. BED ALARM ON.
--- NOTE | 2017-11-09 18:07 | NUR ---
PATIENT NOT PROGRESSING TOWARDS GOALS. PATIENT HAS HAD SO MUCH ANXIETY THIS SHIFT. HE CONTINUES TO STATE, 'I AM DYING, ARE YOU GOING TO DO SOMETHING ABOUT IT.' CONTINUING TO REASSURE THE PATIENT HE IS NOT DYING AND HE IS DOING BETTER. PATIENT IS NOT REASONABLE AT THIS TIME AND CONTIUES TO HAVE THOUGHTS OF DYING. POOR APPETTITE THIS SHIFT AND HE CONTINUES TO REFUSE TO EAT. ENSURE IS GIVEN AT ALL MEALS AND IN BETWEEN MEALS. FLUID BOLUS GIVEN FOR LOW BP, 74/40. BLOOD PRESSURE HAS IMPROVED. UP IN THE CHAIR THIS AFTERNOON WITH ASSIST X2, GAIT BELT, AND A WALKER. HE CONTINUES TO COMPLAIN OF BACK PAIN, HEAD PAIN, TOE PAIN, LEFT AND RIGHT ARM PAIN AND HAS NOTHING POSITIVE TO SAY ABOUT HOW HE IS FEELING OR HOW HIS DAY WENT. FAMILY IS UP TO DATE ON PLAN OF CARE. FRIDAY PICTURES TAKEN. BED/LUIS ALARM ON. WILL CONTINUE TO MONITOR.
[2017-11-10] VITALS (44 sets, daily range): BP systolic 71–101; BP diastolic 35–58
--- NOTE | 2017-11-10 05:22 | NUR ---
ASSUMED PT CARE AT 1930. ASSESSMENT COMPLETED CHARTED. PT HAS BEEN IN BED, RESPIRATIONS IN THE 30S, GAVE ATIVAN AND PAIN MEDICATION TO TRY AND RELAX HIM. PT ASLEEP AT THIS TIME. Q2HR TURN, ABLE TO MAKE SOME NEEDS KNOWN, CONFUSION NOTED. PT YELLING OUT AT TIMES FOR HELP AND BECAUSE HE WAS COLD. TOLD SECURITIES LENDING TRADER HE WAS GOING TO . WILL CONTINUE TO MONITOR.
[2017-11-10 07:06] LABS: HEMATOCRIT 31.6 % (42.0-52.0); HEMOGLOBIN 9.9 gm/dL (14.0-18.0); MCHC 31.3 g/dL (28.0-37.0); MCV 92.6 fL (80.0-100.0); MPV 10.8 fl. (7.2-11.1); RBC 3.41 mil/uL (4.50-6.00); RDW-CV 16.8 % (10.5-14.5); WBC 13.9 thou/uL (4.0-11.0)
[2017-11-10 07:28] LABS: ALBUMIN 2.4 g/dL (3.4-5.0); CALCIUM 7.7 mg/dL (8.5-10.1); CREATININE 1.5 mg/dL (0.6-1.3); MAGNESIUM 2.3 mg/dL (1.8-2.4); POTASSIUM 5.4 mmol/L (3.5-5.1); TOTAL BILIRUBIN 1.2 mg/dL (<0.1-1.0); TOTAL PROTEIN 5.7 g/dL (6.4-8.2)
--- NOTE | 2017-11-10 08:20 | NUR ---
PT BP LOW AND SKIN MOTTLED. PT TACHYPENIC. PT DROWSY AND FALLING ASLEEP DURING CONVERSATION.STACH ON MONITOR.90% ON 4L NC. DR BENEDICT PRUETT AND AT BS. ORDERS TO TRANSFER TO ICU. REFERENCE SERVICES HEAD NOTIFIED
--- NOTE | 2017-11-10 09:07 | NUR ---
SPOKE TO DAUGHTER CELESTINE TO CLARIFY CODE STATUS. SHE STATES SHE WILL SPEAK WITH HER SISTERS AND WILL CALL BACK
--- NOTE | 2017-11-10 09:30 | NUR ---
DTR CELESTINE WHO IS DPOA STATES THAT AFTER DISCUSSION WITH HER SISTERS THEY HAVE DECIDED THAT THEY ARE OK WITH PT BEING INTUBATED BUT "NO SHOCKING HIS HEART OR CPR BECAUSE HIS HEART IS TOO WEAK". CONVEYED DISCUSSION TO DR MCMULLEN
[2017-11-10 10:36] LABS: BE -3.7 mmol/L (-2 to +3); HCO3 17.5 mmol/L (22.0-26.0); PCO2 20.5 mmHg (35.0-45.0); pH 7.548 (7.340-7.450)
[2017-11-10 10:41] LABS: PO2 56.4 mmHg (75.0-100.0)
--- NOTE | 2017-11-10 11:00 | NUR ---
PT TRANSFERRED TO ICU THIS MORNING WITH INCREASED RESP DISTRESS AND DECREASED BLOOD PRESSURE. PT'S DTR CELESTINE HERE AND TALKING WITH DR. MCMULLEN, SHE WILL NOTIFY HER OTHER TWO SISTERS OF PT'S CHANGE IN CONDITION. SHE WILL DISCUSS CODE STATUS WITH THEM. SHE SAID THEY ALL KNOW THAT HE WOULD NOT WANT TO BE 'JUST KEPT ALIVE ON MACHINES,' SHE NEEDS TO TALK WITH HER SISTERS ABOUT HOW AGGRESSIVE TO BE WITH HIS CARE AT THIS POINT.
[2017-11-10 12:15] LABS: CALCIUM 7.2 mg/dL (8.5-10.1); CREATININE 1.6 mg/dL (0.6-1.3)
[2017-11-10 12:23] LABS: POTASSIUM 4.3 mmol/L (3.5-5.1)
--- NOTE | 2017-11-10 14:00 | NUR ---
PT TRANSFERED TO ICU. RESPIRATIONS 35-44. LABORED BREATHING. PT USING ACCESORY MUSCLES. SYSTOLIC BP 70'S -80'S. CENTRAL LINE PLACED BY DR. MCMULLEN. FAMILY SPOKE TO DR AND PT MADE DNR. PT ALERT TO PERSON. PT DROWSY, INCOHERENT SPEECH AT TIMES.
--- NOTE | 2017-11-10 15:43 | 2DMMODE ---
[place] [address] 2 D/M-MODE ECHOCARDIOGRAM Name: [facility] Room: [facility] ADM IN .Latrice.#: [id number] Admission: 10/29/17 Attend Phys: Jayy Pina, Discharge: Date of : 42 Date of Service: 11/10/17 1543 Report #: [id number] THIS REPORT FOR: //name// APPROVED REPORT Study performed: 11/10/2017 14:27:00 EXAM: Limited 2D Echocardiogram Patient Location: In-Patient Room #: [facility] Status: routine BSA: 1.96 HR: 98 bpm BP: 88/50 mmHg Rhythm: NSR Other Information Study Quality: Good Left Ventricle Left ventricle is mildly dilated. There is global hypokinesis of the left ventricle. There is normal left ventricular wall thickness. Left ventricular systolic function is severely decreased. LVEF is 20-25%. Right Ventricle The right ventricle is normal size. The right ventricular systolic function is normal. Atria Left atrium is moderately dilated. The right atrium size is normal. Aortic Valve The Aortic valve is sclerotic. Mitral Valve The mitral valve is normal in structure. Tricuspid Valve The tricuspid valve is normal in structure. Pulmonic Valve Pulmonic valve is not well visualized. [facility] [address] [address] 2 D/M-MODE ECHOCARDIOGRAM Name: LACYCHELA J Room: 005-P ADM IN M.R.#: [id number] Admission: 10/29/17 Attend Phys: Jayy Pina, Discharge: Date of : 42 Date of Service: 11/10/17 1543 Report #: [id number] The aortic root is normal in size. IVC is normal in size and collapses >50% with inspiration. Pericardium There is no pericardial effusion. Left pleural effusion. <Conclusion> LVEF is 20-25%. <ELECTRONICALLY SIGNED> By: Nikita Ordonez MD, FACC 11/10/17 1543 [id number] Nikita Ordonez MD, FACC /INF
--- NOTE | 2017-11-10 18:30 | NUR ---
PT ON LEVO GTT FOR BP SUPPORT. GTT RUNNING AT 8. PT ON 8L HI UMESH NC. PT BREATHING IMPROVED. PT APPEARS CALMER. PT ANXIOUS DURING DAY. XANAX GIVEN. THIS EVENING PT RESTING. PT WENT FOR CT. PT REPOSITIONED. PT REPORTED NEEDING TO HAVE A BOWEL MOVEMENT. PT PLACED ON BED HART 3 X'S. NO BM OR SMEAR. NO INCONTINENCE EPISODES.
--- NOTE | 2017-11-10 23:01 | NUR ---
CALL RECEIVED FROM PTS NIECE, HARSHAD, TEARFULLY INSISTING SHE RECEIVE UPDATE ON PTS CONDITION. PTS IS CONFIDENTIAL STATUS, EXPLAINED NO INFORMATION CAN BE GIVEN. 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 BUT I KNOW HE HAS RENAL FAILURE AND CHF, I KNOW ALL THAT SO OBVIOUSLY I KNOW HIM. ISN'T THERE ANYTHING YOU CAN TELL ME? LIKE IS HE ON A VENTILATOR? IS HE GOING TO MAKE IT?" THESE QUESTIONS WERE ASKED MULTIPLE TIMES, EACH TIME HARSHAD WAS TOLD THAT NO INFORMATION COULD BE GIVEN. HARSHAD DIRECTED TO CONTACT CELESTINE OR TANIA.
--- NOTE | 2017-11-10 23:18 | NUR ---
SPOKE TO PT, INFORMED HIM HARSHAD CALLED TO WHICH HE REPLIED "OH GOD, SHE'S A PAIN IN THE ASS." THIS RN ASKED PT IF HE WANTED HARSHAD TO BE ON HIS LIST OF PEOPLE WE CAN DISCUSS HIS CONDITION WITH, HE QUICKLY REPLIED "NO."
[2017-11-11] VITALS (18 sets, daily range): BP systolic 79–109; BP diastolic 36–71
[2017-11-11 04:09] LABS: HEMATOCRIT 26.9 % (42.0-52.0); HEMOGLOBIN 8.8 gm/dL (14.0-18.0); MCH 28.7 pg (26.0-34.0); MCHC 32.7 g/dL (28.0-37.0); MCV 87.9 fL (80.0-100.0); MPV 10.7 fl. (7.2-11.1); RBC 3.06 mil/uL (4.50-6.00); RDW-CV 15.8 % (10.5-14.5); WBC 10.4 thou/uL (4.0-11.0)
[2017-11-11 04:35] LABS: ALBUMIN 2.1 g/dL (3.4-5.0); CALCIUM 7.3 mg/dL (8.5-10.1); CREATININE 1.5 mg/dL (0.6-1.3); MAGNESIUM 2.3 mg/dL (1.8-2.4); POTASSIUM 3.9 mmol/L (3.5-5.1); TOTAL BILIRUBIN 1.2 mg/dL (<0.1-1.0); TOTAL PROTEIN 5.5 g/dL (6.4-8.2)
--- NOTE | 2017-11-11 04:59 | NUR ---
VSS. LEVOPHED TITRATED TO MAINTAIN MAP >65. O2 SAT REMAINS >92% ON 8L O2 PER HFNC. PT HAS INTERMITENT RUNS OF TACHYCARDIA, HR 120-140 WHICH RETURNS TO BASELINE OF 100 WITHOUT INTERVENTION. THESE HAVE OCCURRED WHEN PT APPEARS TO BE ASLEEP. DOPAMINE GTT INFUSING ORDERED. PT HAS BEEN TURNED Q2HR THROUGHOUT THE SHIFT. CALL LIGHT WITHIN REACH.
--- NOTE | 2017-11-11 10:47 | NUR ---
SPOKE WITH PT, DTR FREDERICK HERE. PT ALERT AND ABLE TO ANSWER QUESTIONS, SAID HE IS FEELING MUCH BETTER THAN YESTERDAY, 'BUT STILL NOT BACK TO NORMAL.' PT IS A DNI NOW. CASE MGT WILL CONTINUE TO FOLLOW.
--- NOTE | 2017-11-11 18:49 | NUR ---
PT ASSESSMENT CHARTED. VSS AT THIS TIME. LEVOPHED STOPPED THIS AFTERNOON AND MAINTAINING MAP'S ABOVE 60. DOBUTAMINE STILL RUNNING AT THIS TIME. PT TACHYPNIC AND TACHYCARDIC THROUGHOUT THE SHIFT ON AND OFF. PT DOESN'T HAVE MUCH OF AN APPETITE AND HE REQUIRES TO BE FED. Q2H TURNS TO MAINTAIN SKIN INTEGRITY. NO OTHER COMPLAINTS AT THIS TIME.
[2017-11-12] VITALS (27 sets, daily range): BP systolic 80–104; BP diastolic 46–67
[2017-11-12 04:57] LABS: HEMATOCRIT 26.6 % (42.0-52.0); HEMOGLOBIN 8.6 gm/dL (14.0-18.0); MCH 28.7 pg (26.0-34.0); MCHC 32.4 g/dL (28.0-37.0); MCV 88.7 fL (80.0-100.0); MPV 10.7 fl. (7.2-11.1); WBC 9.8 thou/uL (4.0-11.0)
[2017-11-12 05:18] LABS: ALBUMIN 2.2 g/dL (3.4-5.0); CALCIUM 7.9 mg/dL (8.5-10.1); CREATININE 1.7 mg/dL (0.6-1.3); MAGNESIUM 2.4 mg/dL (1.8-2.4); POTASSIUM 3.7 mmol/L (3.5-5.1); TOTAL BILIRUBIN 0.8 mg/dL (<0.1-1.0); TOTAL PROTEIN 5.8 g/dL (6.4-8.2)
--- NOTE | 2017-11-12 05:39 | NUR ---
Pt alert & oriented, though thought today was Nov 05. Pt states he had trouble sleeping. Pt made at least 2 calls to daughter, Liudmila, overnight. At LA, norepinephrine gtt restarted for MAP trending below 60; initiated at 3 mcg/min, then increased to 4 mcg/min at 0300. ST w/ PACs per monitor, rate 100s-110s. Afebrile. RR upper-20s to mid-30s. Turned q2h. Denies pain. Took one dose of alprazolam at beginning of shift. Pt states he hopes to get out of bed and start increasing activity today. Will continue to monitor.
[2017-11-12 20:22] LABS: HCO3 15.8 mmol/L (22.0-26.0); PO2 95.9 mmHg (75.0-100.0); pH 7.494 (7.340-7.450)
[2017-11-13] VITALS (32 sets, daily range): BP systolic 82–101; BP diastolic 36–61
--- NOTE | 2017-11-13 06:43 | NUR ---
Pt restless, states he wants his covers and pillows removed because he cannot move his arms. Pt's color appeared more dusky than previous day, and fingers and toes noted to be bluish-purple. BP stable, MAP >65. Unable to palpate peripheral pulses; doppled bilat post-tibs and bilat radials, unable to dopple bilat pedals. Also unable to get SaO2 reading. Using warm blankets, signal eventually attained from finger on rt hand. Pt's RR upper 30s to low 40s, and pt appears to be lethargic, though answers orientation questions correctly. Received order to place on BIPAP and obtain ABGs. Pt requested that BIPAP be removed 5-10 minutes after it was placed. Paged Dr. Kim to update on pt status. No orders received. Daughter called and received update on pt status. Pt rested well for remainder of shift with exception of occasional requests to get up to BSC. Pt had 2 small soft BMs in bed, but informed that he could not get up to commode due to weakness and respiratory status. Remains on 10L O2 per HFC. Will continue to monitor.
--- NOTE | 2017-11-13 12:01 | NUR ---
PT LETHARGIC THIS AM WITH PALLOR COLOR. PT ABLE TO STATE NAME, LOCATION, DATE. PT APPEARS VERY TIRED, VERY WEAK. PT AFEBRILE. PT REPOSITIONED. EXTREMITIES COOL TO THE TOUCH. DTR ALYSIA UPDATED. WILL CONTINUE PLAN OF CAR.E
--- NOTE | 2017-11-13 13:22 | CON ---
[address] [address] CONSULTATION Name: CHELA [facility]SE Room: [address] IN M.R.#: [id number] Admission: 10/29/17 Attend Phys: Jayy Pina MD Discharge: Date of : 42 Report #: [id number] THIS REPORT FOR: //name// CC: Jayy Prince Box HISTORY OF PRESENT ILLNESS: This is a pleasant 77-year-old male with past medical history of rheumatoid arthritis, coronary artery disease, status post multiple cardiac stent placement, last of which was done 2 years back, was presenting with bloody stools and hematemesis. The patient reports that he was in usual state of health until yesterday when he began noticing nausea and vomiting. He initially vomited brown colored material yesterday morning. This was followed by several episodes of bloody stools. The patient denies any lower abdominal pain or any pain while passing stools. He reports some lightheadedness and dizziness and fatigue through the course of the day. The patient had several such bowel movements when he presented to the hospital. After he presented to the hospital at night, he began having episodes of hematemesis. The patient reports he at least had 2 such episodes of vomiting bright red blood. The patient reports taking aspirin and Plavix daily and taking 3 tablets of ibuprofen per day for his rheumatoid arthritis. The patient reports previous episodes of hematemesis, but is unsure if these were investigated and does not remember if he has ever been told that he has peptic ulcer disease. PAST MEDICAL HISTORY: Coronary artery disease status post stenting, rheumatoid arthritis. PAST SURGICAL HISTORY: Nonsignificant. FAMILY HISTORY: No family history of esophageal, gastric or colonic malignancies. SOCIAL HISTORY: The patient has a [id number]-[id number] smoking history and currently smokes. Denies significant alcohol or recreational drug use. REVIEW OF SYSTEMS: A comprehensive 10-point review of systems is negative except for what is mentioned in the HPI. PHYSICAL EXAMINATION: GENERAL: The patient is alert, awake, oriented x 3. HEENT: Mucous membranes are moist. NECK: There is no congestion. LUNGS: Show expiratory wheezing. ABDOMEN: Soft, nondistended, nontender. CARDIOVASCULAR: Rate and rhythm regular, S1, S2 present. NECK: Supple. There is no supraclavicular lymphadenopathy. EXTREMITIES: Warm, well perfused. There [place] [address] CONSULTATION Name: CHELA [facility]SE Room: [address]#: [id number] Admission: 10/29/17 Attend Phys: Jayy Pina MD Discharge: Date of : 42 Report #: [id number] NEUROLOGIC: There is no focal neurological deficit. LABORATORY EXAM: Hemoglobin 10.9 on presentation, now it is 8.3; hematocrit 24.9; WBC count 10.4 and platelets 183. Sodium 145, potassium 4.1, chloride 112, bicarbonate 25, BUN 73, creatinine 1, total bilirubin 0.4, AST 17, ALT 17, albumin 2.5. INR 1. ASSESSMENT AND PLAN: 1. This is a very pleasant 77-year-old male with past medical history of coronary artery disease, on aspirin and Plavix who is presenting with hematemesis and hematochezia. The patient has a history of long-term nonsteroidal anti-inflammatory drug use for rheumatoid arthritis and has a 136-qhqa-yvlg history of smoking. All the above are risk factors for peptic ulcer bleeding. 2. Acute gastrointestinal hemorrhage causing shock. 3. Maintain 2 peripheral IVs at all times. Monitor hemoglobin at least q.12h. PPI drip. Keep the patient n.p.o. We will proceed with endoscopy this a.m. Further recommendations will be based on the results of the endoscopy. <ELECTRONICALLY SIGNED> By: Trav Al MD 11/13/17 1322 [id number] Al MD /nt
--- NOTE | 2017-11-13 18:43 | NUR ---
PT MORE ARROUSABLE THIS SHIFT. PT SLEPT MAJORITY OF SHIFT. PT BATHED. SMEAR BM. PT ATE 75% OF ICE CREAM, 10% OF MASHED POTATOES, AND 50ML OF ENSURE. PT HAS POOR APPETITE. PT REQUESTED TO TAKE OFF SOCKS, SCDS, AND BOOTS. FAMILY AT SIDE OF BED THIS EVENING.
--- NOTE | 2017-11-13 18:48 | NUR ---
PT TITRATED TO 6L HIFLOW NC.
[2017-11-14] VITALS (35 sets, daily range): BP systolic 78–91; BP diastolic 44–57
--- NOTE | 2017-11-14 07:20 | NUR ---
Pt appeared to sleep most of shift. Awakened for turns, but appeared to return to sleep soon afterward. MAP upper 50s to upper 60s. On 6L HFC with O2 sats >92%. Placed warm blanket to feet and upper extremity (to promote more accurate pulseox). Turned q2h. Pt remains very weak and drowsy/lethargic. Will continue to monitor.
--- NOTE | 2017-11-14 08:26 | NUR ---
PATIENT VERY DIAPHROETIC. OFFERED BATH TO PATIENT, HE IS REFUSING. DID ALLOW NURSE TO WIPE HIS FACE WITH WARM WASHCLOTH AND PROVIDE JUDE CARE.
--- NOTE | 2017-11-14 09:32 | NUR ---
PATIENT REFUSING BREAKFAST. STATED "I DON'T EAT BREAKFAST". WAS ABLE TO GET HIM TO TAKE A COUPLE SIPS OF SPRITE AND A STRAWBERRY ENSURE. WILL CONTINUE TO ENCOURAGE PATIENT TO TAKE SIPS OF SUPPLEMENT.
--- NOTE | 2017-11-14 11:20 | NUR ---
TANIA, DAUGHTER FROM [place], HERE TO SEE PATIENT. ASKING TO SPEAK TO PHYSICIAN BEFORE HER SISTER ARRIVES. DR FONSECA NOTIFIED, STATED HE WOULD BE ON THE FLOOR WITHIN 30 MINUTES. THE OTHER DAUGHTER, CELESTINE HOUSE, IS PRIMARY DPOA.
[2017-11-14 12:42] LABS: HEMATOCRIT 28.2 % (42.0-52.0); MCH 28.2 pg (26.0-34.0); MCHC 31.8 g/dL (28.0-37.0); MCV 88.7 fL (80.0-100.0); MPV 10.7 fl. (7.2-11.1); NUCLEATED RBCS 3 /100WBC; PLATELET COUNT* 65 thou/uL (150-400); RBC 3.18 mil/uL (4.50-6.00); RDW-CV 16.6 % (10.5-14.5)
[2017-11-14 12:59] LABS: ALBUMIN 2.4 g/dL (3.4-5.0); CALCIUM 7.7 mg/dL (8.5-10.1); POTASSIUM 5.2 mmol/L (3.5-5.1); TOTAL BILIRUBIN 1.9 mg/dL (<0.1-1.0)
[2017-11-14 13:22] LABS: ABSOLUTE LYMPHOCYTES 0.6 thou/uL (0.8-5.3); ABSOLUTE MONOCYTES 0.1 thou/uL (0.0-1.2); ABSOLUTE NEUTROPHILS 11.3 thou/uL (1.6-8.1); PLATELET ESTIMATE DECREASED
--- NOTE | 2017-11-14 13:46 | NUR ---
BOTH CELESTINE AND TANIA (DAUGHTERS) DISCUSSED WITH PHYSICIAN AND CASE MANAGEMENT ABOUT HOSPICE PLACEMENT. CASE MANAGEMENT WORKING ON PLACEMENT.
--- NOTE | 2017-11-14 14:10 | NUR ---
INTERDISICPLINARY ROUNDS: MET WITH DTRS AT THE DESK PER THEIR REQUEST. THEY ASKED ABOUT HOSPICE AND WHETHER APPROPRIATE. DR FONSECA CAME BACK TO TALK WITH THEM, HOSPICE EVAL ORDERED. DISCUSSED HOSPICE OPTIONS. DTRS STATE THAT [place]. THEY DO NOT WANT PT TO STAY IN THIS HOSPITAL, PREFER HE MOVE CLOSER TO FAMILY. TALKED OPTIONS: HOSPICE HOUSE IF QUALIFIES, HOME WITH FAMILY-WHICH THEY DECLINE, AND [facility] WITH HOSPICE. EXPLAINED THAT NH WOULD BE PRIVATE PAY VS MEDICAID PENDING. THEY OPT TO HAVE PT EVAL'D FOR HOSPICE HOUSE AND WANT [facility]. CALLED AND FAXED REFERRAL TO [facility] [phone] FAX [phone]. ASKED FOR EVAL SOON POSSIBLE. AWAITING CALL BACK WITH TIME FOR EVAL, UPDATED DTRS. OUTSIDE DNR SIGNED AND ON CHART
--- NOTE | 2017-11-14 18:01 | NUR ---
PATIENT NOW ON THE WAITING LIST FOR THE [facility]. PER HOSPICE REP, THEY HAVE NO BEDS AND IT WILL PROBABLY BE FRIDAY. FAMILY UPDATED. ALL QUESTIONS ANSWERED BY HOSPICE SUBSURFACE AUGMENTEE OPERATOR AND THIS NURSE. PATIENT NOW COMFORT CARE AND MEDICAL SURGICAL STATUS.
[2017-11-15] VITALS (17 sets, daily range): BP systolic 76–85; BP diastolic 40–52
--- NOTE | 2017-11-15 05:41 | NUR ---
PATIENT NOT PROGRESSING TOWARDS GOALS. MINIMAL RESPONSE THROUGHOUT SHIFT. PT VITAL SINGS WNL. KEEPING PT COMFORTABLE. DID NOT VOICE DISCOMFORT. SLEPT ALL SHIFT. SPOKE WITH DTR LAST NIGHT UPDATED ON PT CURRENT STATE SHE VOICED UNDERSTANDIG. WILL CONTINUE TO KEEP PATIENT SAFE AND COMFORTABLE.
--- NOTE | 2017-11-15 08:33 | NUR ---
RECEIVED MESSAGE LATE YESTERDAY AFTERNOON THAT FROM MARIANA/ HOSPICE THAT PT IS APPROPRIATE FOR HOSPICE HOUSE, FAMILY PREFERS [facility] HOSPICE HOUSE. THAT HOUSE IS FULL OF YESTERDAY BUT HOSPICE WILL CONTINUE TO REACH OUT WHEN BED IS AVAILABLE. HOSPICE INTAKE [phone] CAN BE CONTACTED ALSO FOR UPDATE. CM TO FOLLOW AND ASSIST WITH DC PLAN
--- NOTE | 2017-11-15 10:56 | NUR ---
PT LETHARGIC THIS MORNING. PT OPENS EYES IN REPONSE TO NAME BEING CALLED. PT ATTEMPS TO SPEAK WHEN ASKED A QUESTION, NO SOUND OCCURS. BP 70'S/50'S TO 80'S/40'S. PT AFEBRILE. HR IN 90'S. OXYGEN 94%. REPOSITIONED FOR COMFORT. RIGHT ARM WEEPING. UPDATE GIVEN TO DTR CELESTINE. WILL CONTINUE TO PROMOTE REST FOR PATIENT.
--- NOTE | 2017-11-15 12:40 | NUR ---
PT SLEEPING. BP 78/48. PT LETHARGIC. PT DENIES PAIN BY SHAKING HEAD NO. PT MOUTHS "WATER". PT ABLE TO TAKE A FEW SIPS OF WATER.
--- NOTE | 2017-11-15 12:42 | NUR ---
RECEIVED NEW ORDERS TO CANCEL THERAPY DUE TO PT TRANSITIONED TO COMFORT CARE. CONFIRMED DISCHARGE FROM PT W/ NSG.
--- NOTE | 2017-11-15 16:08 | NUR ---
CALLED DTR CELESTINE TO UPDATE THAT PT CHANGING ROOMS.
--- NOTE | 2017-11-15 17:02 | NUR ---
ASSUMED CARE THIS AFTERNOON WITH PATIENT TRANSFER TO ROOM 316, COMFORT CARE, PENDING ADMISSION TO HOSPICE. VAGUELY RESPONDS WITH INTERMITTENT FACIAL EXPRESSION, UNABLE TO VERBALLY EXPRESS SELF. DEPENDENT ON STAFF FOR REPOSITIONING, REPOSITIONED FREQUENTLY, LARGE, RED, UNBLANCHABLE AREA TO LEFT BUTTOCK, PHOTO ON CHART. BARRIER CREAM APPLIED LIBERALLY, OFF-LOADING HOURLY AND NECESSARY. CONT ON 6L02NC, RESP DIMIN AND SHALLOW. RIGHT FA W/ ABRASION, CONSTANT WEEPING DUE TO THIRD-SPACING AND DEPENDENT EDEMA. INDWELLING CATHETER PATENT TO DARK YELLOW URINE. DAUGHTER AT BEDSIDE, ALL QUESTIONS ANSWERED, CALL LIGHT IN REACH, CARE PLAN REVIEWED. CONT POC.
[2017-11-16] VITALS: BP 78/49
--- NOTE | 2017-11-16 04:33 | NUR ---
PATIENT RESPONSIVE TO NAME. HAS AT TIMES ASKED FOR WATER AND ALSO STATED HE WANTED SOMEONE WITH HIM. OTHERWISE RESTING QUIETLY ON HOURLY ROUNDS AND AT TIMES APPEARED TO BE SLEEPING. BEDREST. TURNED Q2H WITH MOUTH CARE AND SIPS OF WATER. RIGHT ARM CONTINUES TO WEEP SEROUS DRAINAGE FROM SKIN TEAR. GUAJARDO PATENT WITH DARK YELLOW OUTPUT. BP LOW AT 78/49. REMAINS ON COMFORT CARE. FAMILY STATED UNTIL LATE EVENING. CONTINUE TO MONITOR.
[2017-11-16 08:00] VITALS: BP 78/49
[2017-11-16 11:33] VITALS: BP 96/50
--- NOTE | 2017-11-16 12:18 | NUR ---
RESUMED CARE THIS AM, MORE COHERENT TODAY, HAD COVERSATION REGARDING COFFEE AND IT'S EFFECT ON HIS HEART. CONT TO DECLINE FOOD, DOES ENJOY WATER, MIRIAN WELL. HOSPICE HOUSE NOTIFIED STAFF THAT A BED IS AVAILABLE, DISCHARGE ORDERS RECEIVED, FAMILY INFORMED, PERIPHERAL ACCESS REMOVED WITHOUT INCIDENT. PERSONAL EFFECTS GATHERED, ACCOUNTED FOR, IN COMPANY OF DAUGHTERS AT BEDSIDE. PATIENT TRANSFERRED TO AMBULANCE CART WITHOUT INCIDENT, CONT ON 5L02NC, LEFT UNIT IN STABLE CONDITION, REPORT CALLED TO AMY AT HOSPICE HOUSE.
--- NOTE | 2017-11-22 12:09 | CON ---
[address] [address] CONSULTATION Name: CHELA HOUSE Room: [address] IN .R.#: [id number] Admission: 10/29/17 Attend Phys: Jayy Pina MD Discharge: 11/16/17 Date of : 42 Report #: [id number] THIS REPORT FOR: //name// CC: Jayy Pina Suresh Box DATE OF SERVICE: 11/04/2017 CHIEF COMPLAINT: Tachycardia. HISTORY OF PRESENT ILLNESS: The patient is a 77-year-old male. We are asked to see in a stat manner because of the cardiac rhythm abnormality. The patient is a 77-year-old man with multiple comorbidities, who has a remote history of ischemic cardiomyopathy and respiratory failure and active GI bleeding. He has been going in and out of what appears to be SVT with aberrancy this morning. Heart rates at rest had been in the 130-160 beats per minute. From a cardiovascular standpoint, clinically the patient is without chest pain or pressure, has minimal palpitation complaints, he reports that this is not a new problem for him. His blood pressure is in the low 100s systolic. Currently, he is oxygenating via O2 per nasal cannula. PAST MEDICAL HISTORY: Presented with an upper GI bleed. He has a history of prior AL. He reports he has had over 20 stents put in either by Dr. Hanson or Dr. Cramer and had been told the front part of his heart was . He had an echocardiogram this hospitalization, which revealed an EF within 20% range with global LV dysfunction. He has active tobacco use, 2 to 3 packs daily, peripheral vascular disease, and hypertension. HOME MEDICATIONS: Alprazolam p.r.n., pravastatin 20 mg daily, aspirin 325 mg a day, prednisone 2.5 mg p.o. b.i.d., metoprolol succinate 75 mg daily, Plavix 75 mg daily, pravastatin 20 mg daily, Symbicort and nitroglycerin p.r.n. SOCIAL HISTORY: As above. He is an active smoker. He smoked for more than 60 years and he does drink about a half a quart of vodka every day. REVIEW OF SYSTEMS: GASTROINTESTINAL: Positive nausea and vomiting. GENITOURINARY: No dysuria or hematuria. CARDIOVASCULAR: No chest pain. Positive palpitations. PULMONARY: Positive shortness of breath. No cough. HEMATOLOGIC: Positive anemia. INTEGUMENTARY: No new rashes. PHYSICAL EXAMINATION: VITAL SIGNS: Blood pressure is 100/50, respiratory rate is 22, O2 sat on nasal cannula is 94% on 2 [place] [address] CONSULTATION Name: CHELA HOUSE Room: [address]#: [id number] Admission: 10/29/17 Attend Phys: Jayy Pina MD Discharge: 11/16/17 Date of : 42 Report #: [id number] GENERAL: This is a thin, cachectic, elderly male. HEENT: There is no evidence of trauma. Eyes, EOM intact. No facial asymmetry. He is tracking with his eyes. 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 CARDIOVASCULAR: Regular. There is positive S3, tachycardia. There is no murmur. LUNGS: Diminished breath sounds. ABDOMEN: Nontender. SKIN: There are numerous ecchymoses. There is peripheral wasting. Distal extremities show onychomycosis of his toenails. LABORATORY DATA: Electrocardiogram shows sinus rhythm, nonspecific ST-segment depression, in a sinus rhythm. Hemoglobin is 8.6, white blood cell count is 8.4, platelet count is 114,000. Sodium is 147, potassium is 3.9, chloride is 113, creatinine is 1.7, BUN 69, glucose 126. IMPRESSION: 1. Supraventricular tachycardia. I would continue with plans for IV Cardizem drip if he is not taking p.o. well. We will need to monitor blood pressure. 2. Ischemic cardiomyopathy, chronic systolic dysfunction. He has severe left ventricular dysfunction, we will need to monitor intake and output closely. 3. Coronary artery disease. He reports no angina. We will continue with conservative medical treatment approach as he is a poor candidate for aggressive treatment. 4. Hypotension. We will need to titrate his systolic pressures to a blood pressure more than 90 systolic in regards to his Cardizem drip. 5. Gastrointestinal bleeding. Follow up per our GI colleagues. <ELECTRONICALLY SIGNED> By: Denzel Cox MD, FACC 11/22/17 1209 [id number] Cox MD, FACC /nt
== END 2017-11-16 12:26 | disposition hospice, home (50) | DRG 380 ==
LOC: M.ERS 21:53 → M.2W 23:40 → M.ICU 23:40 → M.TBA-ER 23:40 → M.ICU 23:40 → M.2W 10-30 22:20 → M.ICU 11-01 01:35 → M.2W 11-04 18:30 → M.ICU 11-10 09:09 → M.3W 11-15 15:45
PROVIDERS: Emergency Medicine; Family Medicine; Internal Medicine; Internal Medicine Gastroenterology; Internal Medicine Pulmonary Disease; ADMIT Internal Medicine
PROC: 3E0G8GC Introduction of Other Therapeutic Substance into Upper GI, Via Natural or Artificial Opening Endoscopic (ICD-10-PCS; principal; 2017-10-30)
PROC: 30233N1 Transfusion of Nonautologous Red Blood Cells into Peripheral Vein, Percutaneous Approach (ICD-10-PCS; principal; 2017-10-30)
PROC: 0D558ZZ Destruction of Esophagus, Via Natural or Artificial Opening Endoscopic (ICD-10-PCS; principal; 2017-10-30)
PROC: 0BH17EZ Insertion of Endotracheal Airway into Trachea, Via Natural or Artificial Opening (ICD-10-PCS; 2017-11-01)
PROC: 5A1945Z Respiratory Ventilation, 24-96 Consecutive Hours (ICD-10-PCS; 2017-11-01)
PROC: 02H633Z Insertion of Infusion Device into Right Atrium, Percutaneous Approach (ICD-10-PCS; 2017-11-10)
DX: K22.11 Ulcer of esophagus with bleeding (principal); N17.0 Acute kidney failure with tubular necrosis; J69.0 Pneumonitis due to inhalation of food and vomit; J96.01 Acute respiratory failure with hypoxia; R57.8 Other shock; D62 Acute posthemorrhagic anemia; I47.1 Supraventricular tachycardia; I50.22 Chronic systolic (congestive) heart failure; E27.40 Unspecified adrenocortical insufficiency; E44.0 Moderate protein-calorie malnutrition; Z68.1 Body mass index [BMI] 19.9 or less, adult; I42.9 Cardiomyopathy, unspecified; F41.9 Anxiety disorder, unspecified; J44.9 Chronic obstructive pulmonary disease, unspecified; E78.00 Pure hypercholesterolemia, unspecified; M19.90 Unspecified osteoarthritis, unspecified site; F17.210 Nicotine dependence, cigarettes, uncomplicated; I95.9 Hypotension, unspecified; M06.9 Rheumatoid arthritis, unspecified; I73.9 Peripheral vascular disease, unspecified; I25.5 Ischemic cardiomyopathy; E86.9 Volume depletion, unspecified; F41.8 Other specified anxiety disorders; I11.0 Hypertensive heart disease with heart failure; E87.70 Fluid overload, unspecified; E87.6 Hypokalemia; I25.10 Atherosclerotic heart disease of native coronary artery without angina pectoris; Z95.5 Presence of coronary angioplasty implant and graft; Z88.0 Allergy status to penicillin; Z88.8 Allergy status to other drugs, medicaments and biological substances; Z91.012 Allergy to eggs; I25.2 Old myocardial infarction; Z79.899 Other long term (current) drug therapy